=== PATIENT | male | born 1995 | race African-American/Black ===

== ENCOUNTER 2017-04-14 22:29 | Emergency (ER) | payer MEDICAID | END 2017-04-15 00:11 | disposition left against medical advice (07) | LOC: D.ER 22:29 | DX: S99.911A Unspecified injury of right ankle, initial encounter (principal); X58.XXXA Exposure to other specified factors, initial encounter; Y93.89 Activity, other specified; Y92.89 Other specified places as the place of occurrence of the external cause ==